=== PATIENT | female | born 1980 | race Caucasian/White ===

== ENCOUNTER → 2022-04-04 | Outpatient (CLI) | payer OTHER | LOC: M WUC 15:39 | PROVIDERS: ATTEND Physician Assistant | DX: M77.11 Lateral epicondylitis, right elbow (principal) ==

== ENCOUNTER 2024-04-27 06:45 | Day surgery (SDC) | payer OTHER ==
[~2024-04-27] VITALS: Ht 157.5 cm; Wt 63.3 kg
[~2024-04-27 06:45] MED LIST: PERC5TAB12 PO
[2024-04-27] MEDS ORDERED: ROCURONIUM BROMIDE 50MG/5ML VIAL As Ordered ONE (07:08)
[2024-04-27] MEDS ORDERED: METOCLOPRAMIDE INJ 10MG/2ML VIAL As Ordered ONE (07:08)
[2024-04-27] MEDS ORDERED: KETOROLAC 60MG 2ML VIAL As Ordered ONE (07:08)
[2024-04-27] MEDS ORDERED: MIDAZOLAM INJ 2MG/2ML VIAL As Ordered ONE (07:08)
[2024-04-27] MEDS ORDERED: ONDANSETRON 4MG 2ML VIAL As Ordered ONE (07:08)
[2024-04-27] MEDS ORDERED: SUGAMMADEX SODIUM 500 MG/5 ML VIAL (BRIDION) As Ordered ONE (07:08)
[2024-04-27] MEDS ORDERED: fentaNYL 100 MCG/2 ML INJECTION As Ordered ONE (07:08)
[2024-04-27] MEDS ORDERED: propofoL 200 MG/20 ML VIAL As Ordered ONE (07:09)
[2024-04-27] MEDS ORDERED: ACETAMINOPHEN 1000MG/100ML IV BAG As Ordered ONE (07:09)
[2024-04-27] MEDS ORDERED: LIDOCAINE 2% 100MG/5ML SDV (FOR ANES.) As Ordered ONE (07:09)
[2024-04-27] MEDS ORDERED: HYDROmorphone HCL 2MG/ML 1ML VIAL As Ordered ONE (07:19)
[2024-04-27] MEDS ORDERED: LR 1,000 ML IV SCH ×2 (07:40→09:05)
[2024-04-27] MEDS: SCOPOLAMINE 1MG TRANSDERMAL PATCH TOP ONE (07:43)
[2024-04-27] MEDS: ceFAZolin SOD 2 GM in IV 1 EA IV ONE (08:00)
[2024-04-27] MEDS ORDERED: dexmedeTOMIDine (4MCG/ML)200MCG/50ML BTL (PRECEDEX) As Ordered ONE (08:03)
[2024-04-27] MEDS ORDERED: ONDANSETRON 4MG 2ML VIAL IV PRN (09:05)
[2024-04-27] MEDS ORDERED: HYDROMORPHONE HCL 0.5 MG/ 0.5 ML SYRINGE IV PRN (09:05)
[2024-04-27] MEDS ORDERED: fentaNYL 100 MCG/2 ML INJECTION IV PRN (09:05)
[2024-04-27] MEDS ORDERED: oxyCODONE 5MG TAB PO PRN (09:05)
[2024-04-27] MEDS ORDERED: METOCLOPRAMIDE INJ 10MG/2ML VIAL IV PRN (09:05)
[2024-04-27] MEDS ORDERED: OXYC1TAB23 PO (09:12)
[2024-04-27] MEDS ORDERED: ECOT81TA5 PO (09:12)
[2024-04-27 10:10] VITALS: BP 114/67; TEMP 98.3; O2SAT 97
== END 2024-04-27 10:27 | disposition home or self-care (01) ==
LOC: M SDC 06:45
PROVIDERS: ATTEND Orthopaedic Surgery
DX: S82.852A Displaced trimalleolar fracture of left lower leg, initial encounter for closed fracture (principal); X50.0XXA Overexertion from strenuous movement or load, initial encounter; Y92.89 Other specified places as the place of occurrence of the external cause; Y93.9 Activity, unspecified; F41.9 Anxiety disorder, unspecified; Z79.899 Other long term (current) drug therapy
CPT/HCPCS: 27792; 76000; 81025; C1713; J0131; J0665; J0690; J1100; J1171; J1885; J2250; J2405; J2765; J3010

== ENCOUNTER → 2024-05-11 | Outpatient (CLI) | payer OTHER ==
[~2024-05-11] MED LIST changes: +ECOT81TA5 PO; +OXYC1TAB23 PO
== END ==
LOC: M SOG 08:06
PROVIDERS: ATTEND Physician Assistant
DX: S82.852A Displaced trimalleolar fracture of left lower leg, initial encounter for closed fracture (principal); Y93.9 Activity, unspecified; Y92.9 Unspecified place or not applicable